=== PATIENT | female | born 1990 | race Caucasian/White ===

== ENCOUNTER 2020-11-22 04:43 | Emergency (ER) | payer OTHER ==
[2020-11-22] MEDS ORDERED: Alum Hydrox/Mag Hydrox/Simeth 15 ML, Lidocaine 2% 5 ML PO ONE ×2 (05:02)
[2020-11-22] MEDS ORDERED: Sodium Chloride 0.9% 2.5 ML Syringe FLUSH PRN (05:02)
[2020-11-22] MEDS ORDERED: Ondansetron 4 MG/2 ML SDV IVPUSH ONE (05:02)
[2020-11-22] MEDS ORDERED: Sodium Chloride 0.9% 10 ML Syringe FLUSH PRN (05:02)
--- NOTE | 2020-11-22 05:06 | EDM.PDOC ---
ED HPI GENERAL MEDICAL PROBLEM - General Chief Complaint: Abdominal Pain Stated Complaint: ABDOMINAL PAIN Time Seen by Provider: 11/22/20 04:57 - History of Present Illness INITIAL COMMENTS - FREE TEXT/NARRATIVE: 30-year-old female without past medical history of prior surgical history is presenting with 2 days of intermittent cramping epigastric abdominal pain. No vomiting but some nausea associated with this normal bowel movements just prior to arrival. No fevers or chills no radiation to the back. No shortness of breath. Patient does note they recently moved here from [place] she is had some trouble with stress and anxiety lately as well. She notes some increased burping with a foul taste. Symptoms worsen with p.o. intake. No vaginal bleeding or discharge patient had a normally timed and normal in quality men strual period approximately 1 week ago Abdomen Pain Score (Numeric/FACES): 6 - Related Data Allergies Allergy/AdvReac Type Severity Reaction Status Date / Time No Known Allergies Allergy Verified 11/22/20 04:56 Home Meds: Home Meds . 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: Musculoskeletal History: Reports: None Neurological History: Reports: None Psychiatric History: Reports: None Endocrine/Metabolic History: Reports: None Insulin Pump Model and Blending Tank Helper: None Hematologic History: Reports: None Immunologic History: Reports: None Oncologic (Cancer) History: Reports: None Dermatologic History: Reports: None - Infectious Disease History Infectious Disease History: Reports: None - Past Surgical History Head Surgeries/Procedures: Reports: None HEENT Surgical History: Reports: Other (See Below) Other HEENT Surgeries/Procedures: Ear Tubes Social & Family History - Caffeine Use Caffeine Use: Reports: None - Recreational Drug Use Recreational Drug Use: No ED ROS GENERAL - Review of Systems Review Of Systems: See Below Free Text/Narrative/Comment: General: No fever. Skin: No rash. Eyes: No vision problems. ENT: No sore throat. Neck: No neck stiffness. Respiratory: No shortness of breath. Cardiac: No chest pain. Gastrointestinal: Per HPI Urinary: No dysuria. Musculoskeletal: No myalgias/arthralgias. Neurologic: No headache. ED EXAM, GENERAL - Physical Exam Exam: See Below Free Text/Narrative:: General Appearance: No acute distress, appears comfortable Skin: No rash HEENT: Normocephalic/atraumatic, sclera anicteric, mucous membranes moist Neck: Normal range of motion Chest and Lungs: Bilateral breath sounds, clear to auscultation Cardiovascular: Regular rate and rhythm, no murmur Abdomen: Soft, epigastric tenderness without guarding or rebound Back: Normal Musculoskeletal: No edema or tenderness Neurologic: Awake, alert, no obvious deficits, moving all extremities Psychiatric: Appropriate, cooperative Course - Vital Signs Last Recorded V/S: Last Vital Signs Temp 98.2 F 11/22/20 04:55 Pulse 88 11/22/20 04:55 Resp 18 11/22/20 04:55 BP 138/91 H 11/22/20 04:55 Pulse Ox 97 11/22/20 04:55 - Orders/Labs/Meds Orders: Active Orders 24 hr Category Date Time Status Sodium Chloride 0.9% [Saline Flush] Med 11/22/20 05:02 Active 10 ml FLUSH ASDIRECTED PRN Sodium Chloride 0.9% [Saline Flush] Med 11/22/20 05:02 Active 2.5 ml FLUSH ASDIRECTED PRN Saline Lock Insert [OM.PC] Stat Oth 11/22/20 05:02 Ordered Medication Orders Sodium Chloride (Sodium Chloride 0.9% 10 Ml Syringe) 10 ml FLUSH ASDIRECTED PRN PRN Reason: Keep Vein Open Last Admin: 11/22/20 05:10 Dose: 10 ml Documented by: RACHEL Sodium Chloride (Sodium Chloride 0.9% 2.5 Ml Syringe) 2.5 ml FLUSH ASDIRECTED PRN PRN Reason: Keep Vein Open Last Admin: 11/22/20 05:10 Dose: 2.5 ml Documented by: RACHEL Labs: Laboratory Tests 11/22/20 11/22/20 11/22/20 Range/Units 05:00 05:00 05:00 WBC 6.37 (4.0-11.0) K/uL RBC 4.69 (4.30-5.90) M/uL Hgb 14.2 (12.0-16.0) g/dL Hct 41.0 (36.0-46.0) % MCV 87.4 (80.0-98.0) fL MCH 30.3 (27.0-32.0) pg MCHC 34.6 (31.0-37.0) g/dL RDW Std Deviation 37.6 (28.0-62.0) fl RDW Coeff of Sammy 12 (11.0-15.0) % Plt Count 205 (150-400) K/uL MPV 10.60 (7.40-12.00) fL Neut % (Auto) 69.2 (48.0-80.0) % Lymph % (Auto) 19.0 (16.0-40.0) % Upton % (Auto) 9.7 (0.0-15.0) % Eos % (Auto) 1.9 (0.0-7.0) % Baso % (Auto) 0.2 (0.0-1.5) % Neut # (Auto) 4.4 (1.4-5.7) K/uL Lymph # (Auto) 1.2 (0.6-2.4) K/uL Upton # (Auto) 0.6 (0.0-0.8) K/uL Eos # (Auto) 0.1 (0.0-0.7) K/uL Baso # (Auto) 0.0 (0.0-0.1) K/uL Nucleated RBC % 0.0 /100WBC Nucleated RBCs # 0 K/uL Sodium 138 (136-145) mmol/L Potassium 3.9 (3.5-5.1) mmol/L Chloride 102 (98-107) mmol/L Carbon Dioxide 26.6 (21.0-32.0) mmol/L BUN 14 (7.0-18.0) mg/dL Creatinine 0.8 (0.6-1.0) mg/dL Est Cr Clr Drug Dosing 90.41 mL/min Estimated GFR (MDRD) > 60.0 ml/min Glucose 99 (74-106) mg/dL Calcium 8.5 (8.5-10.1) mg/dL Total Bilirubin 2.2 H (0.2-1.0) mg/dL AST 18 (15-37) IU/L ALT 28 (14-63) IU/L Alkaline Phosphatase 70 (46-116) U/L Total Protein 7.4 (6.4-8.2) g/dL Albumin 4.4 (3.4-5.0) g/dL Globulin 3.0 (2.6-4.0) g/dL Albumin/Globulin Ratio 1.5 (0.9-1.6) Lipase 64 L (73-393) U/L HCG, Qual NEGATIVE (NEG) Meds: Medications Generic Name Dose Route Start Last Admin Trade Name Freq PRN Reason Stop Dose Admin Sodium Chloride 10 ml 11/22/20 05:02 11/22/20 05:10 Sodium Chloride 0.9% 10 Ml Syringe FLUSH 10 ml ASDIRECTED PRN Administration Keep Vein Open Sodium Chloride 2.5 ml 11/22/20 05:02 11/22/20 05:10 Sodium Chloride 0.9% 2.5 Ml Syringe FLUSH 2.5 ml ASDIRECTED PRN Administration Keep Vein Open Discontinued Medications Generic Name Dose Route Start Last Admin Trade Name Freq PRN Reason Stop Dose Admin Al Hydroxide/Mg Hydroxide 15 0 ml 11/22/20 05:02 11/22/20 05:09 ml/ Lidocaine HCl 5 ml PO 11/22/20 05:03 20 each ONETIME ONE Administration Ondansetron HCl 4 mg 11/22/20 05:02 11/22/20 05:09 Ondansetron 4 Mg/2 Ml Sdv IVPUSH 11/22/20 05:03 4 mg ONETIME ONE Administration Departure - Departure Time of Disposition: 05:58 Disposition: Home, Self-Care 01 Condition: Good Clinical Impression: Gastritis - Discharge Information *PRESCRIPTION DRUG MONITORING PROGRAM REVIEWED*: Not Applicable *COPY OF PRESCRIPTION DRUG MONITORING REPORT IN PATIENT YAMILEX: Not Applicable Instructions: Gastritis, Adult Forms: ED Department Discharge Additional Instructions: For the next 2 weeks please take 40 mg of omeprazole 30 minutes before breakfast or 30 minutes before dinner every day. Please be sure to take it consistently approximately every 24 hours. And please be sure that it is taken at least 30 to 40 minutes before a meal. This will help decrease the acid production in your stomach. I encourage you to try and have frequent small meals as this will also help. Please follow-up with one of the primary care clinics listed below. If you develop a fever worsening pain vomiting or any other symptoms that concern you please call your doctor or return to the ER. [facility] - Primary Care [address] [place] [address] [id number] [address] [address] The following information is given to patients seen in the emergency department who are being discharged to home. This information is to outline your options for follow-up care. We provide all patients seen in our emergency department with a follow-up referral. The need for follow-up, as well as the timing and circumstances, are variable depending upon the specifics of your emergency department visit. If you don't have a primary care physician on staff, we will provide you with a referral. We always advise you to contact your personal physician following an emergency department visit to inform them of the circumstance of the visit and for follow-up with them and/or the need for any referrals to a consulting specialist. The emergency department will also refer you to a specialist when appropriate. This referral assures that you have the opportunity for follow-up care with a specialist. All of these measure are taken in an effort to provide you with opt imal care, which includes your follow-up. Under all circumstances we always encourage you to contact your private physician who remains a resource for coordinating your care. When calling for follow-up care, please make the office aware that this follow-up is from your recent emergency room visit. If for any reason you are refused follow-up, please contact the [facility] Emergency Department at and asked to speak to the emergency department charge nurse. Sepsis Event Note (ED) - Focused Exam Vital Signs: Vital Signs Temp Pulse Resp BP Pulse Ox 11/22/20 04:55 98.2 F 88 18 138/91 H 97 - My Orders Last 24 Hours: My Active Orders 11/22/20 05:02 Sodium Chloride 0.9% [Saline Flush] 10 ml FLUSH ASDIRECTED PRN Sodium Chloride 0.9% [Saline Flush] 2.5 ml FLUSH ASDIRECTED PRN Saline Lock Insert [OM.PC] Stat - Assessment/Plan Last 24 Hours: My Active Orders 11/22/20 05:02 Sodium Chloride 0.9% [Saline Flush] 10 ml FLUSH ASDIRECTED PRN Sodium Chloride 0.9% [Saline Flush] 2.5 ml FLUSH ASDIRECTED PRN Saline Lock Insert [OM.PC] Stat Assessment:: 30-year-old female present with signs and symptoms that are most consistent with dyspepsia/gastritis/peptic ulcer disease. Biliary pathology needs to be considered as well and relevant labs are pending. Abdomen is not peritoneal. We will trial Zofran followed by GI cocktail if labs demonstrate any leukocytosis or transaminitis could consider right upper quadrant ultrasound. There were no lower abdominal symptoms that would suggest appendicitis or diverticulitis no findings that would suggest gynecologic pathology. 0600: Patient's labs are completely normal. She did have some symptom improvement with the GI cocktail. I do think gastritis and acid reflux is a hanna sonable place to start in terms of treatment and working diagnosis. We will do a 2-week course of omeprazole the correct way to take it was discussed and understood return precautions were discussed and understood and follow-up with primary care was encouraged.
[2020-11-22 05:41] LABS: BLOOD UREA NITROGEN,BUN 14 mg/dL (7.0-18.0); CARBON DIOXIDE,CO2 26.6 mmol/L (21.0-32.0); CHLORIDE,CL 102 mmol/L (98-107); GLUCOSE RANDOM 99 mg/dL (74-106); LIPASE 64 U/L (73-393); POTASSIUM,K 3.9 mmol/L (3.5-5.1); SODIUM,NA 138 mmol/L (136-145)
== END 2020-11-22 06:08 | disposition home or self-care (01) ==
LOC: MW.ED 04:43
DX: K29.70 Gastritis, unspecified, without bleeding (principal)
CPT/HCPCS: 36415; 80053; 83690; 84703; 85025; 96374; 99284; A9270; J2405